=== PATIENT | male | born 1985 | race Caucasian/White ===

== ENCOUNTER 2017-04-26 14:19 | Emergency (ER) | payer BC ==
[2017-04-26 15:10] VITALS: BP 124/73
--- NOTE | 2017-04-26 16:06 | UC ---
Eye Complaint HPI - HPI Summary HPI Summary: WOKE THIS MORNING WITH RED, MILDLY IRRITATED EYE. MINIMAL CLEAR DRAINAGE. MINIMAL PHOTOSENSITIVITY. NO FB SENSATION. NO OTHER SX. - History of Current Complaint Chief Complaint: UCEye Stated Complaint: EYE ISSUE Time Seen by Provider: 04/26/17 15:18 Hx Obtained From: Patient Onset/Duration: Sudden Onset, Lasting Hours, Still Present Timing: Constant Severity Initially: Mild Severity Currently: Mild Location of Injury: Conjunctiva Aggravating Factor(s): Light, Contact Lens Alleviating Factor(s): Nothing Associated Signs And Symptoms: Positive: Photophobia - MIN, Drainage (Clear) - MIN. Negative: Drainage (Purulent), Vision Impairment Bilateral, Fever, Swelling - Risk Factors Penetrating Injury Risk Factor: Negative - Allergies/Home Medications Allergies/Adverse Reactions: Allergies Allergy/AdvReac Type Severity Reaction Status Date / Time antibiotic eye drop Allergy Hives Uncoded 04/26/17 15:11 PMH/Surg Hx/FS Hx/Imm Hx Previously Healthy: Yes Respiratory History: Asthma Other History Of: Negative For: HIV, Hepatitis B, Hepatitis C - Surgical History Surgical History: Yes Surgery Procedure, Year, and Place: bilat ears x 4 as child; T&A - Family History Known Family History: Positive: Hypertension - Social History Occupation: Employed Full-time Lives: With Family Alcohol Use: Occasionally Substance Use Type: Marijuana Substance Use Comment - Amount & Last Used: daily Smoking Status (MU): Current Every Day Smoker When Did the Patient Quit Smoking/Using Tobacco: March 2015 Cessation Counseling: Patient Advised to Stop Review of Systems Constitutional: Negative Skin: Negative Eyes: Drainage, Eye Redness, Photophobia ENT: Negative Respiratory: Negative Cardiovascular: Negative Gastrointestinal: Negative Neurological: Negative Psychological: Negative All Other Systems Reviewed And Are Negative: Yes Physical Exam Triage Information Reviewed: Yes Appearance: Well-Appearing, No Pain Distress, Well-Nourished Vital Signs: Initial Vital Signs Temp 98.1 F 04/26/17 15:08 Pulse 74 04/26/17 15:08 Resp 18 04/26/17 15:08 BP 124/73 04/26/17 15:08 Pulse Ox 100 04/26/17 15:08 Vital Signs Reviewed: Yes Eyes: Positive: Conjunctiva Clear. Negative: Discharge ENT: Positive: Hearing grossly normal, Pharynx normal, TMs normal. Negative: Nasal congestion, Nasal drainage, Tonsillar swelling, Tonsillar exudate, Trismus , Muffled/hoarse voice Neck: Positive: Supple, Nontender, No Lymphadenopathy Respiratory: Positive: Lungs clear, Normal breath sounds, No respiratory distress, No accessory muscle use Cardiovascular: Positive: RRR, No Murmur Musculoskeletal Exam: Normal Neurological: Positive: Alert, Muscle Tone Normal Psychological: Positive: Age Appropriate Behavior Skin Exam: Normal Eye Complaint Course/Dx - Course Course Of Treatment: ELEVATED BP LIKELY D/T CURRENT CONDITION - Differential Dx/Diagnosis Differential Diagnosis/HQI/PQRI: Conjunctivitis, Other - ALERGIES Provider Diagnoses: CONJUNCTIVITIS, ELEVATED BP WITHOUT DX OF HTN Discharge - Discharge Plan Condition: Stable Disposition: HOME Prescriptions: Tobramycin 0.3% OPHTH.HEAVEN* 1 drop RIGHT EYE Q4H #1 btl Patient Education Materials: Conjunctivitis (ED) Referrals: No Primary Care Phys,NOPCP [Primary Care Provider] - Additional Instructions: USE EYE DROPS DIRECTED. NO CONTACTS UNTIL REDNESS RESOLVED. FOLLOW-UP CARE: You should establish with a private physician for follow-up care. If you are unable to get a timely appointment, or if you are worsening, call us or return for re-evaluation. An additional resource available to assist in finding the appropriate physician for your health care needs is the [facility]. You may contact them by calling [phone].
== END 2017-04-26 16:41 | disposition home or self-care (01) ==
LOC: UCEAST 14:19
DX: H10.30 Unspecified acute conjunctivitis, unspecified eye (principal); R03.0 Elevated blood-pressure reading, without diagnosis of hypertension; J45.909 Unspecified asthma, uncomplicated; F12.90 Cannabis use, unspecified, uncomplicated; Z87.891 Personal history of nicotine dependence
CPT/HCPCS: 99212; G0463